=== PATIENT | male | born 1970 | race Caucasian/White ===

== ENCOUNTER 2020-08-10 20:58 | Observation (INO) | payer SELFPAY ==
[2020-08-11 00:33] VITALS: BP 136/77; TEMP 98.5; BMI 25.0
== END 2020-08-11 01:18 | disposition home or self-care (01) ==
LOC: SURG A 20:58
PROVIDERS: ADMIT Orthopaedic Surgery Hand Surgery; ATTEND Orthopaedic Surgery Hand Surgery
DX: S62.512B Displaced fracture of proximal phalanx of left thumb, initial encounter for open fracture (principal); S66.222A Laceration of extensor muscle, fascia and tendon of left thumb at wrist and hand level, initial encounter; S64.32XA Injury of digital nerve of left thumb, initial encounter; W27.0XXA Contact with workbench tool, initial encounter; Y99.0 Civilian activity done for income or pay
CPT/HCPCS: G0378

== ENCOUNTER 2020-08-11 11:16 | Outpatient (CLI) | payer OTHER, SELFPAY ==
[2020-08-11 13:29] LABS: SARS-CoV-2 NAA Rapid Test Not Detected (NotDetected)
== END 2020-08-11 11:17 | disposition home or self-care (01) ==
LOC: SDC 11:16 → LABBT 11:16 → EDSTATUS 14:29
PROVIDERS: ATTEND Orthopaedic Surgery Hand Surgery
DX: Z20.828 Contact with and (suspected) exposure to other viral communicable diseases (principal)
CPT/HCPCS: U0002

== ENCOUNTER 2020-08-11 15:27 | Observation (INO) | payer SELFPAY ==
[~2020-08-11 15:27] MED LIST: Dexamethasone 20 MG/5 ML VIAL ONE; Glycopyrrolate 0.2 MG/ML 5 ML SYRINGE ONE; Lidocaine 1% PF 5 ML VIAL ONE; Ondansetron PF 4 MG/2 ML Vial ONE; PHENYLEPHRINE-NS 100 MCG/ML 10 ML SYRINGE ONE; PROPOFOL 200 MG/20 ML VIAL ONE
[2020-08-11] MEDS ORDERED: Fentanyl 100 MCG/2 ML VIAL ONE (17:57)
[2020-08-11] MEDS ORDERED: Midazolam HCl 2 mg/2 ml Vial ONE (17:58)
[2020-08-11] MEDS ORDERED: Bacitracin Zinc Ointment 30 gm TUBE ONE (18:06)
[2020-08-11] MEDS ORDERED: Bupivacaine PF 0.5% 30 ML VIAL ONE (18:06)
[2020-08-11] MEDS ORDERED: Sodium Chloride 0.9% 20 ML ONE ×2 (18:06→19:13)
[2020-08-11] MEDS ORDERED: Morphine 4 MG/ML VIAL SLOW IVP PRN (18:40)
[2020-08-11] MEDS ORDERED: HYDROcodone/Acetaminophen 5/325 mg Tablet PO PRN (18:40)
[2020-08-11] MEDS ORDERED: Promethazine HCl 25 MG/ML VIAL IM PRN ×2 (18:40→20:37)
[2020-08-11] MEDS ORDERED: traMADol HCl 50 MG TAB PO PRN (18:40)
[2020-08-11] MEDS ORDERED: Ondansetron PF 4 MG/2 ML Vial SLOW IVP PRN (18:40)
[2020-08-11] MEDS ORDERED: Bisacodyl 10 MG SUPP PR PRN (18:40)
[2020-08-11] MEDS ORDERED: Acetaminophen 325 MG TAB PO PRN (18:40)
[2020-08-11] MEDS ORDERED: Milk Of Magnesia 30 ML UDCUP PO PRN (18:40)
[2020-08-11] MEDS ORDERED: TETANUS AND DIPHTHERIA TOX/PF 0.5 ML DISP.SYRIN IM SCH (18:45)
[2020-08-11] MEDS ORDERED: Communication Order-Pharmacy FS SCH (18:45)
[2020-08-11] MEDS ORDERED: Promethazine HCl 25 MG/ML VIAL SLOW IVP PRN (20:37)
[2020-08-11] MEDS ORDERED: Ondansetron HCl/PF 4 MG/2 ML Vial IVP PRN (20:37)
[2020-08-11] MEDS ORDERED: Vancomycin 1 GM in Premix Bag 1 BAG IVPB SCH (21:00)
--- NOTE | 2020-08-11 21:04 | RAD ---
LEFT FINGER TWO VIEWS: 08/11/20 FINDINGS/IMPRESSION: Two sport fluoroscopic intraoperative images demonstrate placement of a pin in the distal aspect of t he proximal phalanx of the left thumb. POS: OFF
[2020-08-11 21:14] VITALS: BMI 25.7
[2020-08-11 22:06] LABS: Anion Gap 15 mmol/L (10-20); BUN (Urea Nitrogen) 11 mg/dL (8.9-20.6); Calc. Creatinine Clearance 144 mL/min (70-130); Calcium 8.6 mg/dL (7.8-10.44); Carbon Dioxide 25 mmol/L (22-29); Chloride 107 mmol/L (98-107); Estimated GFR-MDRD Greater than 90; Glucose 106 mg/dL (70-105); Potassium 3.8 mmol/L (3.5-5.1); Sodium 143 mmol/L (136-145)
[2020-08-11] MEDS: Sodium Chloride 0.9% 1,000 ML IV SCH (22:09)
[2020-08-11] MEDS ORDERED: Vancomycin HCl 1.25 GM in Sodium Chloride 0.9% 250 ML 250 ML IVPB SCH (22:30)
[2020-08-11] MEDS: Aspirin 81 mg Enteric Coated Tablet PO SCH (22:31)
[2020-08-11] MEDS: Ketorolac Tromethamine 30 MG/ML VIAL IVP SCH (23:11)
--- NOTE | 2020-08-12 00:15 | OP ---
DATE OF PROCEDURE: 08/11/2020 PREOPERATIVE DIAGNOSES: 1. Open proximal phalanx of the left thumb neck fracture. 2. Extensor pollicis longus zone 1 laceration, complete. FINDINGS: 1. One and two as above with findings of the complete radial condylar half of the proximal phalanx neck loss of bone and chondral surface. 2. 100% extensor pollicis longus zone 1 laceration. 3. Cutaneous superficial radial nerve terminal branch laceration in two locations. 4. Mild amount of contamination of the subcutaneous wound. None of the bone and joint, however, except for multiple fragments from the destroyed radial condyle. PROCEDURES PERFORMED: 1. Open debridement of material associated with open fracture. 2. Wound debridement, 3 cm wound. 3. Open reduction internal fixation of unicondylar fracture of the proximal phalanx neck, ulnar aspect. 4. Extensor pollicis longus zone 1 complete laceration repair. 5. Microscopic superficial radial nerve repair under magnification. ESTIMATED BLOOD LOSS: 20 mL. TOURNIQUET TIME: 52 minutes. DESCRIPTION OF PROCEDURE: After successful general endotracheal anesthesia, the limb was prepped and draped. Patient had the tourniquet inflated to 250 mmHg pressure. He was given 15 mL of 0.5% Marcaine before the inflation of tourniquet, was given 10 more afterwards. We then extended the incision approximately 2 cm proximal and 1 cm distal to expose the underlying tendon laceration, it was 100% and it was lacerated just proximal to the joint in line with the subcondylar fractures. The entire central and radial one-half of the chondral surface, dorsal 40% was lost and crushed and comminuted. This was debrided as part of debridement of material associated with open fracture using the curette, [place] blade, irrigation, [place], , and hemostats. Excisional technique was employed. The entire fracture was intraarticular as well. So, the joint was debrided as well. We then the extensor tendon from the underlying subcutaneous skin, we the distal nerve branches and found that the central 1/3 nerve branches were lacerated completely and there is partial laceration of the radial 1/3. For this reason, we isolated these nerves and visualized them. We then irrigated the area after debridement with 3 L normal saline and Pulsavac pressure. We brought the C-arm to the field, we repaired the ulnar condylar fracture that was but not completely in a best fit technique because of surrounding bone loss using a 0.035 K-wire under C-arm supervision. We had excellent position. The wire was cut, flushed with chondral surface as short as possible. We then repaired the extensor tendon with the thumb in approximately 10 degrees hyperextension at the IP joint, but we did not use K-wire because there was so much chondral surface loss and would be in the middle of the fracture debridement zone. The joint was congruent. However, it had lost approximately one-third of his dorsal condylar surface. The repair was accomplished with an interrupted [id number] 3-0 Prolene buried knot. Then, we had used loupe magnification to identify the neurovascular bundles, released tourniquet to ensure we differentiated vessel from the nerve and then repaired the cutaneous nerves using 8-0 Nurolon suture. Hemostasis was obtained. We debrided the wound edges with a tenotomy scissor and then repaired the transverse laceration as well as the incision we created with interrupted 4-0 nylon simple pattern. Bulky dressing applied along with a thumb spica splint with the thumb in hyperextension, and the patient left the operating room without evidence of anesthetic or operative complication. Job ID: [id number]
[2020-08-12] MEDS: Ketorolac Tromethamine 30 MG/ML VIAL IVP SCH ×2 (05:06→12:11)
[2020-08-12] MEDS: Vancomycin HCl 1.25 GM in Sodium Chloride 0.9% 250 ML 250 ML IVPB SCH ×2 (08:42→16:00)
[2020-08-12] MEDS: Aspirin 81 mg Enteric Coated Tablet PO SCH (08:46)
[2020-08-12] MEDS: Sodium Chloride 0.9% 1,000 ML IV SCH ×2 (15:21→15:22)
[2020-08-12 18:40] VITALS: BP 149/81; TEMP 98.4
--- NOTE | 2020-08-12 22:19 | DIS ---
DATE OF ADMISSION: 08/11/2020 DATE OF DISCHARGE: 08/12/2020 ADMISSION DIAGNOSES: 1. Open proximal phalanx fracture, neck intraarticular, left thumb. 2. Extensor pollicis longus laceration complete zone 1. 3. Central dorsal cutaneous nerve laceration, superficial nerve terminal branch. DISCHARGE DIAGNOSES: 1. Open proximal phalanx fracture with wound and associated extensor pollicis longus tendon laceration. 2. Radial chondral loss at the open fracture of the proximal phalanx neck on the radial aspect approximately 50%. 3. Extensor pollicis longus laceration 100%. 4. Central dorsal cutaneous terminal branch superficial radial nerve complete laceration. OPERATIVE PROCEDURES: 1. Open fracture debridement, left thumb. 2. Wound debridement, left thumb. 3. Debridement of material associated with open fracture. 4. Open reduction internal fixation of the intact chondral surface on the ulnar aspect proximal phalanx neck fracture. 5. Extensor pollicis longus zone 1 repair. 6. Microscopic repair, superficial radial nerve terminal branch. 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 He was treated in the emergency room, the wound was irrigated, loosely closed and was referred to us. The surgery took place within 12 hours of the initial injury and was then seen within 24 hours of initial injury and revealed only hematoma with no gross contamination, but he was irrigated and debrided at the fracture line and the wound, best fit and fixation done on remaining condyle for hemicondyle loss on the ulnar aspect. The patient tolerated all surgical procedures listed without evidence of anesthetic or operative complication. No postoperative chills or fever was seen. By the time of discharge, he was ambulating without abnormality on his own without intolerance. DISCHARGE PLAN: Diet will be regular. He was given clindamycin antibiotics, Toradol for pain, swelling, edema as well as narcotic [place] 7.5 mg. Patient left the hospital without evidence of hospitalization complication. Job ID: [id number]
[2020-08-12] MEDS ORDERED: Ketorolac Tromethamine 30 MG/ML VIAL IVP PRN (23:59)
== END 2020-08-12 18:41 | disposition home or self-care (01) ==
LOC: SDC 15:27 → SURG A 18:40
PROVIDERS: ADMIT Orthopaedic Surgery Hand Surgery; ATTEND Orthopaedic Surgery Hand Surgery
PROC: 0PSS04Z Reposition Left Thumb Phalanx with Internal Fixation Device, Open Approach (ICD-10-PCS; principal; 2020-08-11)
DX: S62.512B Displaced fracture of proximal phalanx of left thumb, initial encounter for open fracture (principal)
CPT/HCPCS: 36415; 76000; 80048; 96365; 96366; 96375; 96376; G0378; J0690; J1100; J1885; J2250; J2405; J2704; J3010; J3370; J3490; J7050; S0020